=== PATIENT | female | born 1935 | race Caucasian/White ===

== ENCOUNTER 2018-02-20 08:37 | Inpatient (IN) ==
--- NOTE | 2018-02-18 21:53 | Discharge Summary ---
<Porsha Ruiz - Last Filed: 02/19/18 18:01> Orders not resulted at time of discharge: Pending orders 02/20/18 00:01 XR shoulder complete RT [XR] Routine H/H [Hemoglobin and Hematocrit] [HEME] Routine Date of Encounter: 02/19/18 - Discharge Diagnosis (1) Status post reverse total arthroplasty of right shoulder Priority: Primary Status: Acute (2) Rotator cuff tear arthropathy of right shoulder Priority: Primary Status: Acute (3) HTN (hypertension) Priority: Secondary Status: Chronic Qualifiers: Hypertension type: essential hypertension Qualified Code(s): I10 - Essential (primary) hypertension (4) Tricuspid regurgitation Priority: Secondary Status: Chronic Qualifiers: Cardiac valve disease etiology: etiology unspecified Qualified Code(s): I07.1 - Rheumatic tricuspid insufficiency - Hospital Course Hospital course: Ms. Werner is a 82 year old female - Time Spent with Patient Total time spent providing and/or coordinating discharge services: - Discharge Medications Home Medications: OxyCODONE Immed Rel [Roxicodone 5 MG] 5 mg PO Q6HR PRN 7 Days #28 tablet [Rx] Multivitamin [One Daily Essential] 1 tab PO HS 02/20/18 [History] Red Yeast Rice 600 mg PO BID 02/20/18 [History] amLODIPine [Norvasc] 2.5 mg PO HS 02/20/18 [History] Allergies/Adverse Reactions: 3 Allergy/AdvReac Type Severity Reaction Status Date / Time No Known Allergies Allergy Verified 01/17/18 13:49 Primary care physician: Dillon Faye DO - Patient Status Disposition: Home, Self-Care Condition: Good - Discharge Instructions Follow Up With: Dillon Faye DO [Primary Care Provider] - <Yovany Leong - Last Filed: 02/21/18 06:48> Orders not resulted at time of discharge: Pending orders 02/20/18 00:01 XR shoulder complete RT [XR] Routine H/H [Hemoglobin and Hematocrit] [HEME] Routine 02/20/18 09:13 US anesthesia pain block [US] Routine Date of Encounter: 02/21/18 Time of Encounter: 06:47 - Discharge Diagnosis (1) Status post reverse total arthroplasty of right shoulder Priority: Primary Status: Acute (2) Rotator cuff tear arthropathy of right shoulder Priority: Primary Status: Chronic (3) HTN (hypertension) Priority: Secondary Status: Chronic Qualifiers: Hypertension type: essential hypertension Qualified Code(s): I10 - Essential (primary) hypertension (4) Tricuspid regurgitation Priority: Secondary Status: Chronic Qualifiers: Cardiac valve disease etiology: etiology unspecified Qualified Code(s): I07.1 - Rheumatic tricuspid insufficiency (5) Acute blood loss anemia Priority: Primary Status: Acute - Hospital Course Hospital course: Ms. Werner is a 82 year old female Status post right total shoulder replacement The patient had an uneventful postoperative course. They received antibiotics and physical therapy and were discharged in stable condition. There will follow -up in the office in 2 weeks. - Time Spent with Patient Total time spent providing and/or coordinating discharge services: Primary care physician: Dillon Faye DO - Patient Status Functional capacity at discharge: independent ambulation Overall status at discharge: patient is progressing back to baseline
[2018-02-20] MEDS ORDERED: Famotidine 20 MG/2 ML VIAL IVP ONE (09:12)
[2018-02-20] MEDS ORDERED: Acetaminophen IV 1,000 MG/100 ML INFUS..BTL IVPB ONE (09:13)
[2018-02-20] MEDS ORDERED: Plasma-Lyte A (PH 7.4) 1,000 ML IVC SCH (09:15)
--- NOTE | 2018-02-20 09:21 | History & Physical Report ---
Date of Encounter: 02/20/18 Time of Encounter: 09:21 24 Hour HP Update - Instructions Instructions: If the History and Physical is less than 30 days old and was completed prior to A.M. admission and or procedure and has NOT been updated on calendar day of procedure please complete this update prior to performing procedure. - Update Patient reports changes in Medical Condition: No Changes in examination, assessment, or condition: No Changes in Medication: No Preop tests/diagnostics Reviewed: Yes Surgery Remains Indicated: Yes Consent for Planned Operative Procedure(s) Verified: Yes - Pre-Operative Checklist Preoperative Checklist Indicated: No Prophylactic Antibiotic Ordered: Yes Is VTE Prophylaxis Indicated?: Yes
[2018-02-20] MEDS ORDERED: CeFAZolin Syr 2,000MG/20 ML 2,000 MG/20 ML SYRINGE IVPB ONE (09:24)
[2018-02-20] MEDS ORDERED: Ringers Solution, Lactated 1,000 ML IVC SCH ×2 (09:30→13:23)
[2018-02-20] MEDS ORDERED: ROPIVACAINE HCL/PF 0.5% 30 ML VIAL ONE (10:10)
[2018-02-20] MEDS ORDERED: Bupivacaine/Clonidine Syringe 1 EACH SYRINGE ONE (10:10)
--- NOTE | 2018-02-20 10:16 | Anesthesia Evaluation PreOp ---
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 Other Medical History: GERD, Other (Anxiety) Anesthesia History: No Prior Anesthetic Complications : No Alcohol Use: none Drug use: none Medications and Allergies OxyCODONE Immed Rel [Roxicodone 5 MG] 5 mg PO Q6HR PRN 7 Days #28 tablet [Rx] Multivitamin [One Daily Essential] 1 tab PO HS 02/20/18 [History] Red Yeast Rice [Red Yeast Rice] 600 mg PO BID 02/20/18 [History] amLODIPine [Norvasc] 2.5 mg PO HS 02/20/18 [History] 3 Allergy/AdvReac Type Severity Reaction Status Date / Time No Known Allergies Allergy Verified 01/17/18 13:49 - Meds/Allergy Pre-op Review Medications Reviewed: Yes Allergies Reviewed: Yes Beta Blockers on Current Med List: No Anesthesia Results - Labs Laboratory Tests 02/19/18 02/19/18 12:52 12:52 Hgb 11.6 Hct 36.9 Plt Count 168 Sodium 141 Potassium 3.8 BUN 21 Creatinine 0.95 - Imaging EKG: report reviewed (SR) Additional studies: ECHO 2013 EF 60% Anesthesia Exam O2 Sat Height 1.63 m Height 1.63 m Height 1.63 m Weight 56.961 kg Weight 56.961 kg Weight 56.961 kg O2 Sat by Pulse Oximetry 97 O2 Sat by Pulse Oximetry 97 Vital Signs Temp Pulse Resp BP Pulse Ox 97.9 F 90 18 162/90 97 02/20/18 09:03 02/20/18 09:03 02/20/18 09:03 02/20/18 09:03 02/20/18 09:03 Height: 5'4 Weight: 125 lbs NPO (# of Hours): MN Pain Scale: 0 - HEENT Pupil (Motor): Pupils equal, EOMI Mallampati: II Denture Type: Upper: Complete Oral Opening: Less than or equal to 3 - 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
[2018-02-20] MEDS ORDERED: Dexamethasone 4 MG/ML VIAL ONE (10:17)
[2018-02-20] MEDS ORDERED: *HR* Rocuronium Bromide 50 MG/5 ML VIAL ONE (10:17)
[2018-02-20] MEDS ORDERED: *HR* Propofol 200 MG/20 ML VIAL IVP ONE (10:17)
[2018-02-20] MEDS ORDERED: Ondansetron 4 MG/2 ML VIAL ONE (10:17)
[2018-02-20] MEDS ORDERED: *HR* Succinylcholine 200 MG/10 ML VIAL IVP ONE (10:17)
[2018-02-20] MEDS ORDERED: *HR* FentaNYL (PF) 100 MCG/2 ML VIAL ONE (10:19)
[2018-02-20] MEDS ORDERED: Lidocaine -MPF 2% 2 ML VIAL ONE (10:19)
[2018-02-20] MEDS ORDERED: Tetracaine/PF 20 MG/2 ML AMPUL ONE (10:24)
[2018-02-20] MEDS ORDERED: Lidocaine -MPF 4% 5 ML AMPUL ONE (10:26)
--- NOTE | 2018-02-20 11:13 | Anesthesia Procedures ---
Date of Encounter: 02/20/18 Time of Encounter: 10:15 Procedures: Anesthesia - Nerve Block Procedure Date: 02/20/18 Time: 11:00 Pre-op Diagnosis: Arthropathy Rt Shoulder Surgical Procedure: Total Shoulder Replacement Checklist: Correct Patient Identifier Correct side: Right Blood Thinner: No Monitor Applied: EKG, BP, Pulse Oximetry Supplemental Oxygen via Nasal Cannula (L/min): 2 Sedation: Fentanyl (mcg): 50 Indication: Post Op Analgesia Pre-op Neuro Deficits: No Block Type: Supraclavicular Catheter placed: No Depth at skin (cm): 1 Sterile Technique: Yes Ultrasound used: Yes Anatomy identified: Yes Visual spread of Local: Yes Neuro Stimulation: No Blood on Needle Aspiration: No Smooth Injection of Local: Yes Pain with Injection of Local: No Prep: Chlorhexadine Needle: 22 x 50 mm Stimuplex Local: 0.25% Bupivicaine w/Clonidine 20 mcg/cc, Tetracaine (20), Ropivacaine ( 0.5) Volume (cc): 30 Number of Attempts: 1 Complications: None/effective block Vitals: Vital Signs/O2 Sat/Glucose, Most Current Temp Pulse Resp BP Pulse Ox 02/20/18 11:09 78 16 163/87 100 02/20/18 11:00 77 16 170/85 100 02/20/18 10:54 81 16 186/91 100 02/20/18 10:49 78 16 172/87 100 02/20/18 09:26 97.9 F 90 18 162/90 97 02/20/18 09:03 97.9 F 90 18 162/90 97
[2018-02-20] MEDS ORDERED: EPHEDrine 50 MG/ML VIAL ONE (11:56)
[2018-02-20] MEDS ORDERED: *HR* HYDROmorphone 2 MG TABLET PO PRN (12:10)
[2018-02-20] MEDS ORDERED: *HR* OxyCODONE Immed Rel 5 MG TABLET PO PRN ×2 (12:10→13:23)
[2018-02-20] MEDS ORDERED: Ondansetron 4 MG/2 ML VIAL IVP ONE (12:10)
[2018-02-20] MEDS ORDERED: Dexamethasone 4 MG/ML VIAL IVP ONE (12:10)
--- NOTE | 2018-02-20 12:22 | Orthopedic Operative Note ---
Date of procedure: 02/20/18 Pre-op diagnosis: left total shoulder replacment Post-op diagnosis: same Procedure: Procedure: Total Shoulder Replacment Reverse, right Estimated blood loss: 100 cc Hardware: Metal and polyethylene replacement: Arthrex medium glenoid baseplate , 2 4.5 screws. 1 6.5 screw, 39+4 glenosphere, 6 humeral stem, poly insert 3 and 6 metal Exam Under anesthesia: Full motion no instability Procedural Notes: Irreparable tear supraspinatus tendon. Operative procedure: The patient was brought to the operating room and placed on the operating room table. After general anesthesia was administered the operative shoulder was examined. Findings were noted. The patient was placed in the modified beachchair position. All pressure points were padded appropriately. And the head was stabilized in the neutral position. The operative extremity was prepped and draped in the sterile surgical fashion. The patient received IV antibiotics prior to skin incision. A standard deltopectoral approach was made to the operative shoulder. Incision was made to the skin and subcutaneous tissue,hemo stasis was obtained with Bovie cautery. Using careful blunt dissection the cephalic vein was identified and mobilized medially. The deltopectoral interval was developed and the clavipectoral fascia was incised. The subscap was released off the lesser tuberosity and tagged with #2 FiberWire suture subscap was irreparable. The humerus was dislocated patient noted to have irreparable tear supraspinatus tendon, and the humeral cut was made along the anatomic neck. Anterior and posterior Bankart retractors were placed to expose the glenoid. The glenoid guide was seated and the centering hole was made. It was reamed with the appropriate reamer. The medium baseplate was seated and secured with (2) 4.5 screws and one 6.5 screw. The baseplate was irrigated and dried and the 39+4 Glenosphere was seated and secured with the Jose taper. The Jose taper was tested and found to be secure the humerus was redislocated and prepared with the diaphyseal reamers, followed by a broaching process up to the appropriate size 6 in the patient's anatomic version. The metaphyseal reamer was then utilized. Trial reduction found the shoulder to be relocatable. Trial components were removed and the 6 stem was impacted in place in the patient's anatomic version. Trial reduction found the shoulder to be relocatable and stable with the appropriate 6 metal 3 Nilam. Trial component was removed and the real implants was seated and secured the shoulder was reduced. The shoulder had excellent motion and excellent stability and no evidence of dislocation. The deep tissue was irrigated with pulse irrigation. The PA close the shoulder. The deltopectoral interval was closed with a running #1 PDS suture, subcutaneous tissue was irrigated and closed with 0 PDS suture, the skin was closed with Dermabond. The patient was placed in a sterile dressing, abduction brace and extubated. The patient was then transferred to the recovery room in stable condition. Anesthesia: GETA Was there an digital marketing assistant present: No Estimated blood loss (cc): 100 Condition: stable Disposition: PACU
--- NOTE | 2018-02-20 13:05 | Anesthesia Evaluation Post Op ---
Date of Encounter: 02/20/18 Time of Encounter: 13:00 - Vital Signs Vital Signs: Vital Signs/O2 Sat/Glucose, Most Current Temp Pulse Resp BP Pulse Ox 02/20/18 12:40 97.4 F L 89 14 174/88 100 02/20/18 11:24 69 16 159/80 100 02/20/18 11:09 78 16 163/87 100 02/20/18 11:00 77 16 170/85 100 02/20/18 10:54 81 16 186/91 100 02/20/18 10:49 78 16 172/87 100 02/20/18 09:26 97.9 F 90 18 162/90 97 - Lungs Lungs: Clear Ascult./Percussion - Airway Airway: Non-obstructed - Cardiovascular Regular Rate - Mental Status Mental Status: Alert & Oriented, Answers Appropriately - Pain Pain Scale: 0 - Nausea Vomiting Nausea Vomiting: Not Present - Hydration Hydration: Ice chips - Discharge PostOp Status: Transfer Patient to floor
[2018-02-20] MEDS ORDERED: Ondansetron 4 MG/2 ML VIAL IVP PRN (13:23)
[2018-02-20] MEDS ORDERED: MOM Conc 10 ML UD.LIQ PO PRN (13:23)
[2018-02-20] MEDS ORDERED: Temazepam 15 MG CAPSULE PO PRN (13:23)
[2018-02-20] MEDS ORDERED: Naloxone 0.4 MG/ML INJ IVP PRN (13:23)
[2018-02-20] MEDS ORDERED: Sennosides 8.6 MG TABLET PO PRN (13:23)
[2018-02-20] MEDS ORDERED: traMADol 50 MG TABLET PO PRN (13:23)
[2018-02-20 14:32] LABS: Hematocrit 25.6 % (35.3-44.9)
[2018-02-20 14:36] LABS: Hemoglobin 7.9 g/dL (11.5-15.4)
[2018-02-20] MEDS ORDERED: *HR* Enoxaparin 30 MG/0.3 ML SYRINGE SQ SCH (18:00)
[2018-02-20] MEDS ORDERED: *HR* Enoxaparin 30 MG/0.3 ML SYRINGE SQ ONE (18:15)
[2018-02-20] MEDS: CeFAZolin Pre 2,000 MG/100 ML 2,000 MG/100 ML BAG IVPB SCH ×2 (18:30→23:27)
[2018-02-20] MEDS ORDERED: Multivit/Ca/Min/Fe/FA 1 TAB TABLET PO SCH (21:00)
[2018-02-20] MEDS ORDERED: amLODIPine 5 MG TABLET PO SCH (21:00)
[2018-02-20] MEDS: (Red Yeast Rice [Red Yeast Rice] 600 MG) PO SCH (21:39)
--- NOTE | 2018-02-21 06:48 | Orthopedics Progress Note ---
Date of Encounter: 02/21/18 Time of Encounter: 06:48 - Assessment and Plan (1) Status post reverse total arthroplasty of right shoulder Current Visit: No Status: Acute (2) Rotator cuff tear arthropathy of right shoulder Current Visit: No Status: Chronic (3) HTN (hypertension) Current Visit: No Status: Chronic Qualifiers: Hypertension type: essential hypertension Qualified Code(s): I10 - Essential (primary) hypertension (4) Tricuspid regurgitation Current Visit: No Status: Chronic Qualifiers: Cardiac valve disease etiology: etiology unspecified Qualified Code(s): I07.1 - Rheumatic tricuspid insufficiency (5) Acute blood loss anemia Current Visit: Yes Status: Acute Subjective Interval history: Patient was seen this morning doing well without complaints. Afebrile vital signs stable. Operative extremity: Neurovascularly intact Dressing clean dry and intact Calves nontender Assessment and plan: Continue with postoperative care Hemoglobin 7.9 patient asymptomatic plan for discharge today Objective Vital signs: Vital Signs Temp Pulse Resp BP Pulse Ox 02/21/18 03:37 97.7 F 69 14 151/71 97 02/20/18 23:42 98.4 F 69 16 148/69 96 02/20/18 19:05 97.7 F 84 14 159/70 97 02/20/18 13:40 98 02/20/18 13:25 79 12 166/93 98 02/20/18 13:08 97.4 F L 83 16 179/83 97 02/20/18 13:00 83 14 177/85 96 02/20/18 12:50 89 16 178/79 98 02/20/18 12:40 97.4 F L 89 14 174/88 100 02/20/18 11:24 69 16 159/80 100 02/20/18 11:09 78 16 163/87 100 02/20/18 11:00 77 16 170/85 100 02/20/18 10:54 81 16 186/91 100 02/20/18 10:49 78 16 172/87 100 02/20/18 09:26 97.9 F 90 18 162/90 97 02/20/18 09:03 97.9 F 90 18 162/90 97 Intake and Output 02/20/18 02/20/18 02/21/18 15:59 23:59 07:59 Intake Total 20 / 20 340 / 340 0 / 0 Output Total 500 / 500 600 / 600 0 / 0 Balance -480 / -480 -260 / -260 0 / 0 Intake: IV Fluids 20 / 20 100 / 100 Ancef Premix 2,000 MG/100 ML 2, 100 / 100 000 mg In 100 ml @ 200 mls/hr IVPB Q8HR JOSE Rx#:[id number] Ancef Syringe 2,000 MG/20 ML 2, 20 / 20 000 mg In 20 ml @ 200 mls/hr IVPB PREOP ONE Rx#:[id number] Oral 240 / 240 0 / 0 Output: Urine 400 / 400 600 / 600 0 / 0 Estimated Blood Loss 100 / 100 Other: Meal Dinner Percent of Meal Consumed 100% # Voids 1 Weight 56.961 kg - Labs CBC & BMP: 02/20/18 13:40 Labs: Abnormal lab results Hgb 7.9 g/dL (11.5-15.4) L D 02/20/18 13:40 Hct 25.6 % (35.3-44.9) L 02/20/18 13:40 - VTE Documentation of Mechanical Device: Venous foot pump, device Consult Discharge Plan - Plan Referrals: Dillon Faye DO [Primary Care Provider] -
[2018-02-21] MEDS: *HR* OxyCODONE/APAP 5/325 TABLET PO PRN ×2 (06:49→11:43)
[2018-02-21 07:12] LABS: Hematocrit 33.2 % (35.3-44.9)
[2018-02-21 07:25] VITALS: BP 148/76
[2018-02-21] MEDS: (Red Yeast Rice [Red Yeast Rice] 600 MG) PO SCH (09:08)
[2018-02-21 09:52] LABS: Hemoglobin 10.5 g/dL (11.5-15.4)
--- NOTE | 2018-02-22 12:28 | Physician Discharge Referral ---
Home Health/Hosp Referral Info Transfer to: Home Health Attending Provider: Provider in Charge Post Discharge: PCP - Diagnosis (1) Status post reverse total arthroplasty of right shoulder Priority: Primary Status: Acute (2) Rotator cuff tear arthropathy of right shoulder Priority: Primary Status: Chronic (3) HTN (hypertension) Status: Chronic (4) Tricuspid regurgitation Status: Chronic - Respiratory Orders None Smoking Cessation: Smoking cessation has been advised. For more information, call the [place] Tobacco Quit Line at 9-609-RAON-NOW. - Diet/Nutrition Diet/Nutrition Orders: Regular - Activity Activity Orders: Up ad robert, Ambulate - Services Needed Following services are medically necessary services: Nursing, Home Health Aide, Physical Therapy, Occupational Therapy Home Care Orders: SHOULDER continuity: Opsite dressing, leave intact until first post-operative visit. Zipline in place , plan to remove at post-operative day #14-16. If dressing becomes >50% saturated, contact office, remove dressing and place appropriate dressing in its place. Do not allow for dressing to get wet. Shoulder Precautions x 6 weeks. Apply cold therapy wrap 3-6x/day for 20 minutes at a time. Encourage ambulation throughout the day. Use Incentive spirometer 10x/hour. Elevate affected extremity above heart as tolerated. NWB to affected upper extremity x 6 weeks. Will remove brace at first post-operative appointment. OK to remove during PT/ OT and Home exercises. - Transfer Medications Home Medications: OxyCODONE Immed Rel [Roxicodone 5 MG] 5 mg PO Q6HR PRN 7 Days #28 tablet [Rx] Multivitamin [One Daily Essential] 1 tab PO HS 02/20/18 [History] Red Yeast Rice 600 mg PO BID 02/20/18 [History] amLODIPine [Norvasc] 2.5 mg PO HS 02/20/18 [History] Allergies/Adverse Reactions: 3 Allergy/AdvReac Type Severity Reaction Status Date / Time No Known Allergies Allergy Verified 01/17/18 13:49 Certification: Further, I certify that my clinical findings support that this patient is homebound (i.e. absences from home require considerable and taxing effort and are for medical reasons or hoahaoism services or infrequently or short duration when for other reasons) because: Homebound Reason: Post-surgery restriction and or conditions limit ability to leave home Attestation: My signature below is to certify that this patient is under my care and that I, or nurse practitioner, or a physician's general surgery physician assistant working with me, has a face-to -face encounter with this patient.
== END 2018-02-21 12:02 | disposition home or self-care (01) | DRG 483 ==
LOC: SAMDAY 08:37 → 3NENU 13:57
PROVIDERS: ADMIT Orthopaedic Surgery; ATTEND Orthopaedic Surgery